=== PATIENT | female | born 1995 | race Caucasian/White ===

== ENCOUNTER 2017-01-13 12:41 | Emergency (ER) | payer BC ==
--- NOTE | 2017-01-13 13:22 | ERNOTE ---
ER Female HPI Date of Service: 01/13/17 Stated Complaint: UTI Presenting Symptoms: dysuria Time Seen by Provider: 01/13/17 13:04 Source: patient Exam Limitations: no limitations Immunizations: IMMUNIZATION HX Immunizations Up to Date Yes History of Influenza Vaccine No Hx Pneumococcal Vaccination No Allergies/Adverse Reactions: Allergies amoxicillin trihydrate [From Augmentin] Allergy (Mild, Verified 01/13/17 12:57) rash potassium clavula *RETIRED-06/30/13 [From Augmentin] Allergy (Mild, Verified 12:57) rash Home Medications: HOME MEDICATIONS Cephalexin Monohydrate [Keflex] 500 mg PO QID #40 cap 01/13/17 [Last Taken Unknown] Lurasidone HCl [Latuda] 20 mg PO DAILY 01/13/17 [Last Taken Unknown] - History of Present Illness Narrative: 21 year old female presents to ED ambulatory via POV. States she is 8 weeks A0. confirmed via urine on 12/18. LMP 11/16/16 with EDC 08/23/17. Has frequent UTI in past with last one approximately 2 months ago. States noticed urinary frequency beginning last Sunday and now has burning with urination beginning last night. Complains of fever, body aches and pain left mid back area. Denies vomiting Date (Duration): 01/06/17 Timing: Present: other - frequency x 1 week, now burning and pubic area pressure Quality: Present: mild, fullness, other - pressure Onset Location: Present: right flank Radiation: Present: suprapubic Activities at Onset: Present: none Prior Abdominal Problems: Present: similar symptoms, other - history of frequent UTI Sexual Cantu Addition History: Present: other - currently 8 weeks , confirmed Modifying Factors - (Worsens): Present: urinating Associated Symptoms: Present: fever/chills, nausea, dysuria, urinary frequency, low back pain. Absent: diaphoresis, vomiting, polyuria, loss of bladder control Review of Systems - Review of Systems Constitutional: Present: fever, chills. Absent: recent illness, diaphoresis, weakness, fatigue, weight loss, decreased activity level EYE: Present: no symptoms reported. Absent: eye pain, eye discharge, double vision, vision changes ENT: Present: no symptoms reported. Absent: ear pain, ear discharge, nose pain , nose congestion, nasal drainage, sore throat Respiratory: Present: no symptoms reported. Absent: shortness of breath, cough , orthopnea, wheezing Cardiology: Present: no symptoms reported. Absent: chest pain, palpitations Gastrointestinal/Abdominal: Present: nausea. Absent: vomiting, diarrhea Genitourinary: Present: frequency, dysuria. Absent: hematuria, decreased urinary output, discharge Musculoskeletal: Present: no symptoms reported. Absent: back pain, muscle pain Skin: Absent: rash Neurological: Present: no symptoms reported Endocrine: Present: no symptoms reported Hematologic/Lymphatic: Present: no symptoms reported - Patient's Past Medical History Patient History - Medical: Depression Patient History - Cardiac/Respiratory: No pertinent hx Patient History - Cancer: No Hx of Cancer Patient History - Surgical Procedures: T & A Patient History - Other: None LMP (Calendar): 04/26/16 - Social History Living Situations: home Psych History: Hx of Anxiety, Hx of Depression Does anyone smoke in the home?: No Smoking Status: Former smoker Have you smoked in the past 12 months: No Do you dip or chew tobacco: No Alcohol Use: none Drug Use: none - Immunizations Immunizations Up to Date: Yes Hx Pneumococcal Vaccination: No History of Influenza Vaccine: No Physical Exam - Physical Exam General Appearance: Present: wd/wn, alert, no apparent distress Eye Exam: Normal inspection: bilateral, PERRL: bilateral Ears, Nose, Throat: Present: normal ENT inspection, hearing grossly normal, normal pharynx Neck: Present: normal inspection, nontender, full range of motion. Absent: lymphadenopathy (R), lymphadenopathy (L) Respiratory: Present: no respiratory distress, normal breath sounds, no accessory muscle use, chest nontender, lungs clear Cardiovascular/Chest: Present: regular rate, rhythm, no murmur, normal peripheral pulses Peripheral Pulses: N=norm/S=strong/W=weak/B=bound/A=absent: Radial (R): Normal, Radial (L): Normal Gastrointestinal/Abdominal: Present: normal bowel sounds, nontender, nondistended, soft Rectal Exam: Present: deferred Back Exam: Present: normal inspection, normal range of motion, CVA tenderness (R ). Absent: CVA tenderness (L), decreased range of motion Extremity Exam: Present: normal inspection, non-tender, no edema, normal range of motion Neurological Exam: Present: alert, oriented, normal mood/affect, no motor/ sensory deficits Skin Exam: Present: normal color, warm/dry Lymphatic Exam: Present: no adenopathy ED Progress - Results and Orders Patient's Lab Results:: I have reviewed the patient's lab results. - Vital Signs Patient's Vital Signs:: I have reviewed the patient's vital signs. Vital Signs: Vital Signs 01/13/17 12:54 Temperature 36.8 C Pulse Rate 87 Respiratory 14 Rate Blood Pressure 150/89 O2 Sat by Pulse 100 Oximetry - Progress/Reassessment Chief Complaint: Urinary Tract Problems Progress:: Unchanged Departure Clinical Impression: Complicated urinary tract infection - Departure Disposition: Home Follow Up Needed Condition: Good Instructions: and Urinary Tract Infection Additional Instructions: Take antibiotic until completed. Drink increased amounts of water Referrals: Kaitlin Lawrence MD [Primary Care Provider] - Prescriptions: Cephalexin Monohydrate [Keflex] 500 mg PO QID #40 cap
--- OUTSIDE RECORDS SUMMARY | 2017-01-13 13:29 | XMS REPORT | Continuity of Care Document ---
:1995 Author Organization [facility] ([facility]) Address [address] [place] [address] Phone [phone] Care Team Providers Name Role Phone Kaitlin Lawrence Primary Care Provider [phone] Source Comments This disclosure is being made pursuant to the Care Everywhere program, applicable federal and state laws, and may not contain all informaitonavailable regarding this patient.[facility] ([facility]) Active Allergies and Adverse Reactions No Known Allergies Current Medications Not on file Active Problems Not on file Social History Tobacco Use Types Packs/Day Years Used Date Never Assessed Last Filed Vital Signs Vital Sign Reading Time Taken Blood Pressure 120/80 03/07/2013 1:53 PM CDT Pulse 81 03/07/2013 1:53 PM CDT Temperature 36 C (96.8 F) 03/07/2013 1:53 PM CDT Respiratory Rate 20 03/07/2013 1:53 PM CDT Height 1.561 m (5' 1.46") 03/07/2013 1:53 PM CDT Weight 74.7 kg (164 lb 10.9 oz) 03/07/2013 1:53 PM CDT Body Mass Index 30.66 03/07/2013 1:53 PM CDT Oxygen Saturation - - Plan of Care Health Maintenance Due Date Last Done Comments Hepatitis B Vaccine (1 of 3 - Primary Series) 1997 HPV Vaccine (1 of 3 - Female/Unknown 3 Dose Series) 2008 Tdap Vaccine 2008 Meningococcal Vaccine (1 of 1) 2013 Lipid Disorder Screening 2015 MMR Vaccine 2015 Td Vaccine 2015 Varicella Vaccine (1 of 2 - Adult - No Evidence of 2015 Immunity) Influenza Vaccine: Seasonal (#1) 06/26/2016 Results from Last 3 Months Not on file
--- OUTSIDE RECORDS SUMMARY | 2017-01-13 13:30 | XMS REPORT | Summary of Care ---
:1995 Author Organization [facility] Address [facility] [place] [address]- Care Team Providers Name Role Phone Kaitlin Lawrence Primary Care Physician Encounter Date(s): 12/18/16 - 12/19/[address] [address]- [facility] Discharge Diagnosis: Suicidal ideation Discharge Diagnosis: Major depression Discharge Disposition: Discharge/Transfer to [facility] as Inpt Attending Physician: Kai Subramanian DO Admitting Physician: Kai Subramanian DO Vital Signs Most recent to oldest 1 2 3 [Reference Range]: Temperature Temporal Artery 37.6 DegC [36-38 DegC] (12/19/16 7:32 AM) Temperature Temporal Artery 37.6 DegC [36.0-38.0 DegC] (12/18/16 7:10 PM) Heart Rate Monitored [60-100 99 bpm 115 bpm 119 bpm bpm] (12/19/16 7:32 AM) *HI* *HI* (12/19/16 12:33 AM) (12/18/16 7:10 PM) Respiratory Rate [12-20 16 br/min 16 br/min 20 br/min br/min] (12/19/16 7:32 AM) (12/19/16 12:33 AM) (12/18/16 7:10 PM) SpO2 96 % 97 % 100 % (12/19/16 7:32 AM) (12/19/16 12:33 AM) (12/18/16 7:10 PM) Blood Pressure [90-130/60-90 112/64mmHg 135/69mmHg 135/82mmHg mmHg] (12/19/16 7:32 AM) *HI* *HI* (12/19/16 12:33 AM) (12/18/16 7:10 PM) Weight Estimated 100 kg (12/18/16 7:10 PM) Weight Dosing 100.00 kg1 (12/18/16 7:13 PM) 1Result Comment: This result was because the dosing weight was either not entered or it is>30 days old. This result is based off: Weight Estimated December 18, 2016 19:10:00 ARTIST AND REPERTOIRE MANAGER by Jo Ann Machado RN Problem List Condition Effective Dates Status Health Status Informant Anxiety(Confirmed) Active Depression (emotion)(Confirmed) Active GERD (gastroesophageal reflux Active disease)(Confirmed) Headache(Confirmed) Active Hypertension(Confirmed) Active Hypothyroid(Confirmed) Active Allergies, Adverse Reactions, Alerts No Known Medication Allergies Medications ALPRAZolam Oral, 0 Refill(s), Start Date: 11/02/15 11:01:00 ARTIST AND REPERTOIRE MANAGER Start Date: 11/02/15 Stop Date: 12/19/16 Status: CompletedALPRAZolam 0.25 mg oral tablet 1 tab(s), Oral, BID, PRN for anxiety, 0 Refill(s), Start Date: 12/19/16 7:48:00 ARTIST AND REPERTOIRE MANAGER Start Date: 12/19/16 Status: OrderedARIPiprazole 15 mg oral tablet 1 tab(s), Oral, Daily, # 30 tab(s), 0 Refill(s), Start Date: 12/19/16 7:44:00 ARTIST AND REPERTOIRE MANAGER Start Date: 12/19/16 Status: OrderedARIPiprazole 2 mg oral tablet 1 tab(s), Oral, Daily, 0 Refill(s), Start Date: 11/02/15 11:02:00 ARTIST AND REPERTOIRE MANAGER Start Date: 11/02/15 Stop Date: 12/19/16 Status: Completedlevothyroxine Daily, 0 Refill(s), Start Date: 11/02/15 11:01:00 ARTIST AND REPERTOIRE MANAGER Start Date: 11/02/15 Stop Date: 12/19/16 Status: Completedlevothyroxine 50 mcg (0.05 mg) oral tablet 1 tab(s), Oral, Daily, # 30 tab(s), 0 Refill(s), Start Date: 12/19/16 7:48:00 ARTIST AND REPERTOIRE MANAGER Start Date: 12/19/16 Status: Orderedlithium Oral, 0 Refill(s), Start Date: 11/02/15 11:01:00 ARTIST AND REPERTOIRE MANAGER Start Date: 11/02/15 Stop Date: 12/16/15 Status: Completedlithium 300 mg oral tablet 1 tab(s), Oral, BID, # 270 tab(s), 0 Refill(s), Start Date: 12/19/16 7:48:00 ARTIST AND REPERTOIRE MANAGER Start Date: 12/19/16 Status: OrderedMicrogestin 12/15 1 tab(s), Oral, Daily, 0 Refill(s), Start Date: 11/02/15 11:01:00 ARTIST AND REPERTOIRE MANAGER Start Date: 11/02/15 Status: OrderedPriLOSEC 40 mg oral delayed release capsule 1 cap(s), Oral, Daily, # 30 cap(s), 0 Refill(s), Start Date: 12/20/15 9:45:00 ARTIST AND REPERTOIRE MANAGER, Pharmacy: [facility] [id number] Start Date: 12/20/15 Stop Date: 12/19/16 Status: Completedpropranolol 0 Refill(s), Start Date: 11/02/15 11:02:00 ARTIST AND REPERTOIRE MANAGER Start Date: 11/02/15 Stop Date: 12/19/16 Status: CompletedSuprep Bowel Prep Kit oral liquid See Instructions, 1 kit(s) Oral ONETIME, # 1 kit(s), 0 Refill(s), Start Date: 11:17:00 ARTIST AND REPERTOIRE MANAGER, Pharmacy: [facility] [id number] Start Date: 11/02/15 Stop Date: 12/20/15 Status: Completedtopiramate 2 tab(s), Oral, Daily, 0 Refill(s), Start Date: 11/02/15 11:02:00 ARTIST AND REPERTOIRE MANAGER Start Date: 11/02/15 Stop Date: 12/19/16 Status: Completedtopiramate 100 mg oral tablet 2 tab(s), Oral, Daily, 0 Refill(s), Start Date: 12/19/16 7:46:00 ARTIST AND REPERTOIRE MANAGER Start Date: 12/19/16 Status: Orderedtopiramate 25 mg oral tablet 1 tab(s), Oral, Daily, # 180 tab(s), 0 Refill(s), Start Date: 12/19/16 7:47:00 ARTIST AND REPERTOIRE MANAGER Start Date: 12/19/16 Status: Orderedvenlafaxine 75 mg oral tablet 1 tab(s), Oral, Daily, 0 Refill(s), Start Date: 12/19/16 7:45:00 ARTIST AND REPERTOIRE MANAGER Start Date: 12/19/16 Stop Date: 01/18/17 Status: Orderedvenlafaxine extended release 1 tab, Oral, Daily, 0 Refill(s), Start Date: 11/02/15 11:01:00 ARTIST AND REPERTOIRE MANAGER Start Date: 11/02/15 Stop Date: 12/19/16 Status: Completed Results Patient Viewable Results Most recent to oldest [Reference 1 2 Range]: WBC [4.8-10.8 thou/mm3] 6.7 thou/mm3 (12/18/16 7:58 PM) RBC [4.20-5.40 Mil/mm3] 4.91 Mil/mm3 (12/18/16 7:58 PM) Hgb [12.0-16.0 g/dL] 13.7 g/dL (12/18/16 7:58 PM) Hct [37.0-47.0 %] 40.1 % (12/18/16 7:58 PM) MCV [80.0-94.0 fL] 81.7 fL (12/18/16 7:58 PM) MCH [25.0-38.0 pg/cell] 27.9 pg/cell (12/18/16 7:58 PM) MCHC [31.0-37.0 g/dL] 34.2 g/dL (12/18/16 7:58 PM) RDW [1.0-48.0 fL] 39.9 fL (12/18/16 7:58 PM) Platelet [130-400 thou/mm3] 265 thou/mm3 (12/18/16 7:58 PM) Neutrophils % Auto [50.0-75.0 %] 62.8 % (12/18/16 7:58 PM) Immature Granulocyte Auto [0.1-2.0 0.3 % %] (12/18/16 7:58 PM) Lymphocytes % Auto [15.0-41.0 %] 31.6 % (12/18/16 7:58 PM) Monocytes % Auto [2.0-10.0 %] 4.8 % (12/18/16 7:58 PM) Eosinophils % Auto [0.0-6.0 %] 0.4 % (12/18/16 7:58 PM) Basophil % Auto [0.0-1.0 %] 0.1 % (12/18/16 7:58 PM) Neutrophils Absolute [1.5-5.9 4.2 thou/mm3 thou/mm3] (12/18/16 7:58 PM) Immature Gran Absolute [0.01-0.03 0.02 thou/mm3 thou/mm3] (12/18/16 7:58 PM) Lymphocytes Absolute [1.5-4.0 2.1 thou/mm3 thou/mm3] (12/18/16 7:58 PM) Monocytes Absolute [0.0-0.9 0.3 thou/mm3 thou/mm3] (12/18/16 7:58 PM) Eosinophil Absolute [0.0-0.7 0.0 thou/mm3 thou/mm3] (12/18/16 7:58 PM) Basophil Absolute [0.0-0.2 0.0 thou/mm3 thou/mm3] (12/18/16 7:58 PM) Sodium Lvl [135-144 mEq/L] 138 mEq/L (12/18/16 7:58 PM) Potassium Lvl [3.3-4.8 mEq/L] 3.9 mEq/L (12/18/16 7:58 PM) Chloride Lvl [98-107 mEq/L] 100 mEq/L (12/18/16 7:58 PM) Bicarbonate Lvl [22-30 mmol/L] 22 mmol/L (12/18/16 7:58 PM) Anion Gap [10.0-20.0] 19.9 (12/18/16 7:58 PM) Glucose Lvl [70-108 mg/dL] 99 mg/dL (12/18/16 7:58 PM) BUN [7-21 mg/dL] 7 mg/dL (12/18/16 7:58 PM) Creatinine Lvl [0.50-1.20 mg/dL] 0.52 mg/dL (12/18/16 7:58 PM) BUN/Creat Ratio 13.5 *NA* (12/18/16 7:58 PM) eGFR AA [>=60] >60 (12/18/16 7:58 PM) eGFR SARAY [>=60] >60 (12/18/16 7:58 PM) Calcium Lvl [8.6-10.2 mg/dL] 9.1 mg/dL (12/18/16 7:58 PM) Total Protein [6.4-8.3 g/dL] 7.4 g/dL (12/18/16 7:58 PM) Albumin Lvl [3.5-5.2 g/dL] 4.5 g/dL (12/18/16 7:58 PM) Globulin 2.9 *NA* (12/18/16 7:58 PM) A/G Ratio [0.9-1.8] 1.6 (12/18/16 7:58 PM) Bilirubin Total [0.1-1.0 mg/dL] 0.4 mg/dL (12/18/16 7:58 PM) Alkaline Phosphatase [39-129 72 unit/L unit/L] (12/18/16 7:58 PM) AST [0-39 unit/L] 17 unit/L (12/18/16 7:58 PM) ALT [0-40 unit/L] 16 unit/L (12/18/16 7:58 PM) TSH [0.50-3.00 mIU/L] 1.17 mIU/L (12/18/16 7:58 PM) Estimated Creatinine Clearance 187.27 mL/min 143.20 mL/min (12/18/16 8:22 PM) (12/18/16 7:13 PM) Ethanol Lvl [0-9 mg/dL] <10 mg/dL *LOW* (12/18/16 7:58 PM) Acetaminophen Lvl [10-20 mcg/mL] <5 mcg/mL *LOW* (12/18/16 7:58 PM) Salicylate Lvl [0.0-25.0 mg/dL] <0.3 mg/dL *LOW* (12/18/16 7:58 PM) Urine Amphetamine Scrn Negative (12/18/16 8:45 PM) Urine Barbiturate Scrn Negative (12/18/16 8:45 PM) Urine Benzodiazepine Scrn Negative (12/18/16 8:45 PM) Urine Cannabinoid Met Scrn Negative (12/18/16 8:45 PM) Urine Cocaine Met Scrn Negative (12/18/16 8:45 PM) Urine Methadone Scrn Negative (12/18/16 8:45 PM) Urine Opiate Scrn Negative (12/18/16 8:45 PM) Urine Phencyclidine Scrn Negative (12/18/16 8:45 PM) Urine Propoxyphene Scrn Negative (12/18/16 8:45 PM) UA Color Straw *NA* (12/18/16 8:45 PM) Urine Clarity Clear *NA* (12/18/16 8:45 PM) Specific [place] [1.000-1.060] 1.009 (12/18/16 8:45 PM) Urine pH [5-8] 6 (12/18/16 8:45 PM) Ketones 2+ *ABN* (12/18/16 8:45 PM) Bilirubin [Negative] Negative (12/18/16 8:45 PM) Urine Protein [Negative] Negative (12/18/16 8:45 PM) Glucose [Negative] Negative (12/18/16 8:45 PM) Urine HGB [Negative] Negative (12/18/16 8:45 PM) Urobilinogen <2.0 *NA* (12/18/16 8:45 PM) Nitrite [Negative] Negative (12/18/16 8:45 PM) Leuk Esterase [Negative] 1+ *ABN* (12/18/16 8:45 PM) UA Ascorbic Acid [Negative] Negative (12/18/16 8:45 PM) Urine WBC [0-5] 6-10 *ABN* (12/18/16 8:45 PM) Urine RBC [0-2] 0-2 (12/18/16 8:45 PM) Squamous Epi [0-5] 0-5 (12/18/16 8:45 PM) Mucus Trace (12/18/16 8:45 PM) HGC, SERUM QUAL [Negative] Positive *ABN* (12/18/16 7:58 PM) Serum HCG, Interp. If test result does not correlate with clinical presentation, then either immediate serum quantitative HCG test or repeat qualitative test in forty-eight hours recommended. The test is intended as an aid in diagnosing early . *Unknown* (12/18/16 7:58 PM) Microbiology Reports TEST:Urine Culture STATUS:Order in Progress BODY SITE: SOURCE:Urine COLLECTED DATE/TIME:12/18/16 7:36 PMPRELIMINARY REPORTNo growth less than 24 hrs. Immunizations No data available for this section Procedures Procedure Date Related Diagnosis Body Site Breath Test Bacteria Lactulose1 01/04/16 Colonoscopy2 12/20/15 Esophagogastroduodenoscopy3 12/20/15 Tonsillectomy and adenoidectomy 1999 1auto-populated from documented surgical [id number] from documented surgical [id number] from documented surgical case Social History No data available for this section Assessment and Plan No data available for this section
[2017-01-13 13:36] LABS: Hematocrit 36.5 % (37.0-47.0); Hemoglobin 12.3 gm/dL (12.5-16.0); Mean Cell Volume 81.8 fl (78-100); Mean Corpuscular Hemoglobin 27.6 pg (27-31); Mean Corpuscular Hgb Conc 33.7 g/dl (32-36); Neutrophil # 5.1 K/mm3 (1.3-6.0); Neutrophil % 63.3 % (42-75.0); Platelet Count 252 K/mm3 (150-450); Red Blood Count 4.46 M/mm3 (4.2-5.4); Red Cell Distribution Width 13.3 % (11.5-14.0); White Blood Count 8.1 K/mm3 (4.0-10.5)
[2017-01-13 13:39] LABS: Urine Appearance Cloudy; Urine Bilirubin Negative (NEGATIVE); Urine Blood Negative /ul (NEGATIVE); Urine Color Yellow; Urine Ketone Negative (NEGATIVE); Urine Protein Negative (NEGATIVE); Urine Specific Gravity 1.025 SP.GR. (1.005-1.010); Urine pH 6.5 pH (5.0-7.0)
[2017-01-13 13:40] LABS: Urine Bacteria 1+; Urine Nitrite Negative (NEGATIVE); Urine RBC None Seen /hpf (0-5); Urine Urobilinogen Normal (NORMAL)
[2017-01-13 13:45] LABS: Anion Gap 16.1 mmol/L (6.8-13.8); BUN/Creatinine Ratio 13.8 (9.0-21.6); CRP 2.3 mg/dL (0.0-0.9); Carbon Dioxide 23.9 mmol/L (24-32.6); Estimated Creat Clear 134.7
[2017-01-13 14:41] LABS: Urine Appearance Clear; Urine Bilirubin Negative (NEGATIVE); Urine Blood Negative /ul (NEGATIVE); Urine Color Yellow; Urine Ketone Negative (NEGATIVE); Urine Specific Gravity 1.005 SP.GR. (1.005-1.010)
[2017-01-13 14:42] LABS: Urine Bacteria 1+; Urine Nitrite Negative (NEGATIVE); Urine Protein Negative (NEGATIVE); Urine RBC None Seen /hpf (0-5); Urine Urobilinogen Normal (NORMAL); Urine WBC 0-5 /hpf (0-5)
[2017-01-13 15:23] VITALS: BP 122/71
== END 2017-01-13 15:26 | disposition home or self-care (01) ==
LOC: ER 12:41
DX: O23.41 Unspecified infection of urinary tract in pregnancy, first trimester (principal); Z3A.08 8 weeks gestation of pregnancy; Z87.891 Personal history of nicotine dependence

== ENCOUNTER 2017-05-16 16:06 | Emergency (ER) | payer BC ==
[2017-05-16 16:56] LABS: Hematocrit 35.3 % (37.0-47.0); Hemoglobin 11.6 gm/dL (12.5-16.0); Mean Cell Volume 88.3 fl (78-100); Mean Corpuscular Hgb Conc 32.9 g/dl (32-36); Mean Platelet Volume 9.8 fl (6.0-9.5); Neutrophil % 66.8 % (42-75.0); Platelet Count 212 K/mm3 (150-450); Red Cell Distribution Width 14.1 % (11.5-14.0); White Blood Count 8.9 K/mm3 (4.0-10.5)
[2017-05-16 17:02] LABS: Urine Bilirubin Negative (NEGATIVE); Urine Blood Negative /ul (NEGATIVE); Urine Ketone 5 mg/dL (NEGATIVE); Urine Nitrite Negative (NEGATIVE); Urine Protein 15 mg/dL (NEGATIVE); Urine Specific Gravity 1.025 SP.GR. (1.005-1.010); Urine Urobilinogen Normal (NORMAL)
[2017-05-16 17:20] LABS: Anion Gap 13.4 mmol/L (6.8-13.8); BUN/Creatinine Ratio 13.5 (9.0-21.6); Bilirubin, Total 0.2 mg/dL (0.0-1.1); Ca. Corrected For Albumin 9.6 mg/dL (8.4-10.2); Calcium * 9.1 mg/dL (7.9-10.9); Carbon Dioxide 23.3 mmol/L (24-32.6); Potassium 3.7 mmol/L (3.4-4.6); Total Protein 6.9 gm/dL (6.2-8.2)
[2017-05-16 17:21] LABS: Urine Appearance Slightly Cloudy; Urine Bacteria 2+; Urine Color Yellow; Urine RBC 0-5 /hpf (0-5)
[2017-05-16] MEDS ORDERED: ONDANSETRON HCL/PF 2 MG/ML VIAL IV ONE (17:44)
[2017-05-16] MEDS ORDERED: NORMAL SALINE 1,000 ML IV ONE (17:44)
--- NOTE | 2017-05-16 17:57 | ERNOTE ---
Abdominal HPI - Narrative Date of Service: 05/16/17 - General Chief Complaint: Abdominal Pain Time Seen by Provider: 05/16/17 17:24 Source: patient Exam Limitations: no limitations - Immun/Allergies/Home Medications Immunizatons: IMMUNIZATION HX Immunizations Up to Date Yes History of Influenza Vaccine No Hx Pneumococcal Vaccination No Allergies/Adverse Reactions: Allergies amoxicillin trihydrate [From Augmentin] Allergy (Mild, Verified 05/16/17 16:41) rash potassium clavula *RETIRED-06/30/13 [From Augmentin] Allergy (Mild, Verified 16:41) rash Home Medications: HOME MEDICATIONS ARIPiprazole [Abilify] 10 mg PO DAILY 05/16/17 [Last Taken Unknown] Vit #76/Iron,Carb/FA [Prenatabs Rx Tablet] 1 each PO DAILY 05/16/17 [ Last Taken Unknown] - History of Present Illness Narrative: Pt. comes in with c/o nausea and 2 episodes of vomiting for 12 hours. Pt. denies any SOB, CP, fever, recent illness but states that she is 25 weeks and experiencing cramping. Review of Systems - Review of Systems Constitutional: Present: no symptoms reported. Absent: recent illness, fever, chills, weakness, fatigue, malaise EYE: Present: no symptoms reported ENT: Present: no symptoms reported Respiratory: Present: no symptoms reported. Absent: shortness of breath, cough , wheezing Cardiology: Present: no symptoms reported. Absent: chest pain, palpitations, edema Gastrointestinal/Abdominal: Present: nausea, vomiting, abdominal pain - occasional cramping 4x per hous. Absent: diarrhea Genitourinary: Present: no symptoms reported Musculoskeletal: Present: no symptoms reported. Absent: back pain, joint pain Skin: Present: no symptoms reported. Absent: rash, change in hair/nails All Other Systems: All systems neg except as marked - Patient's Past Medical History Patient History - Medical: Depression Patient History - Cardiac/Respiratory: No pertinent hx Patient History - Cancer: No Hx of Cancer Patient History - Surgical Procedures: T & A Patient History - Other: None LMP (Calendar): 04/26/16 - Social History Living Situations: home Psych History: Hx of Anxiety, Hx of Depression Does anyone smoke in the home?: No Smoking Status: Never smoker Have you smoked in the past 12 months: No Alcohol Use: none Drug Use: none - Immunizations Immunizations Up to Date: Yes Hx Pneumococcal Vaccination: No History of Influenza Vaccine: No Physical Exam - Physical Exam General Appearance: Present: wd/wn, alert, no apparent distress Eye Exam: Normal inspection: bilateral, PERRL: bilateral, EOMI: bilateral Ears, Nose, Throat: Present: normal ENT inspection, normal pharynx Neck: Present: normal inspection, nontender. Absent: lymphadenopathy (R), lymphadenopathy (L) Respiratory: Present: no respiratory distress, normal breath sounds, no accessory muscle use, chest nontender, lungs clear Cardiovascular/Chest: Present: regular rate, rhythm, no murmur, normal peripheral pulses Gastrointestinal/Abdominal: Present: normal bowel sounds, nontender, nondistended, soft, no organomegaly, other - gravid and obese Back Exam: Present: normal inspection, normal range of motion, no CVA tenderness , no vertebral tenderness Extremity Exam: Present: normal inspection, non-tender, normal range of motion, no edema Neurological Exam: Present: alert, oriented, normal mood/affect, no motor/ sensory deficits Skin Exam: Present: normal color, warm/dry. Absent: pallor, skin rash ED Progress - Date and Time Seen: Date and Time: 05/16/17 Pt. labs indicitive of mild dehydration, and hcg is apporopriate for 25 week . 05/16/17 19:55 Pt. NST without signs of contractions and fetus is active with good variability. Pt. tolerating foods and fluids at this time. - Results and Orders Patient's Lab Results:: I have reviewed the patient's lab results. - Vital Signs Patient's Vital Signs:: I have reviewed the patient's vital signs. Vital Signs: Vital Signs 05/16/17 16:39 Temperature 37.2 C Pulse Rate 118 H Respiratory 14 Rate Blood Pressure 123/74 O2 Sat by Pulse 97 Oximetry - Progress/Reassessment Chief Complaint: Abdominal Pain Progress:: Improved Departure - Departure Clinical Impression: Acute gastroenteritis Disposition: Home self-care Condition: Good Instructions: Viral Gastroenteritis, Adult, [id number] Additional Instructions: Please increase fluid intake and follow up with [facility] in 2-3 days. Referrals: Kaitlin Lawrence MD [Primary Care Provider] -
[2017-05-16] MEDS ORDERED: ONDANSETRON HCL/PF 2 MG/ML VIAL ONE (17:59)
[2017-05-16 20:06] VITALS: BP 128/82
== END 2017-05-16 20:30 | disposition home or self-care (01) ==
LOC: ER 16:06
DX: O26.892 Other specified pregnancy related conditions, second trimester (principal); E86.0 Dehydration; K52.9 Noninfective gastroenteritis and colitis, unspecified; Z3A.25 25 weeks gestation of pregnancy
CPT/HCPCS: 36415; 80053; 81001; 82150; 83690; 84702; 85025; 87086; 96361; 96374; 99283; J2405

== ENCOUNTER 2017-08-15 17:19 | Inpatient (IN) | payer BC ==
[2017-08-15] MEDS ORDERED: OXYTOCIN/DEXTROSE 5%-WATER 30 UNITS/500 ML BAG IV ONE ×2 (17:59→19:55)
[2017-08-15] MEDS ORDERED: RINGER'S SOLUTION,LACTATED 1,000 ML IV PRN (17:59)
[2017-08-15] MEDS ORDERED: BUTORPHANOL TARTRATE 2 MG/ML VIAL IV PRN (17:59)
[2017-08-15] MEDS ORDERED: ONDANSETRON HCL/PF 2 MG/ML VIAL IV PRN ×2 (17:59→18:00)
[2017-08-15] MEDS ORDERED: LIDOCAINE HCL 50 ML VIAL PERI PRN (17:59)
[2017-08-15] MEDS ORDERED: RINGER'S SOLUTION,LACTATED 1,000 ML IV ONE (17:59)
[2017-08-15] MEDS ORDERED: DEXTROSE 5%-LACTATED RINGERS 1,000 ML IV PRN (17:59)
[2017-08-15] MEDS ORDERED: BUPIVACAINE HCL/0.9 % NACL/PF 250 ML EP PRN (18:00)
[2017-08-15] MEDS ORDERED: NALOXONE HCL 1 MG/1 ML SYRG IV PRN (18:00)
--- NOTE | 2017-08-15 18:09 | OR ---
Anesthesia Pre Procedure Eval Date of Service: 08/15/17 Pre Procedure Evaluation: Last Vital Signs Temp 37.0 C 05/16/17 19:55 Pulse Resp BP 128/82 05/16/17 19:55 Pulse Ox Anesthesia Pre Procedure Evaluation Heart Rate: 110 Blood Pressure: 127/82 Temperature: 36.3C Respiratory Rate: 18 SaO2: 96 DATE: 08/15/2017 TIME: 1805 INDICATIONS: Active labor, labor pain PAST MEDICAL HISTORY: Primipara patient in active labor requesting labor analgesia History of GERD: No History of smoking: No History of sleep apnea: Known EXAM: Heart regular; lungs clear ASSESSMENT OF MEDICAL STATUS: Appropriate candidate for labor analgesia PLANNED PROCEDURE: Combination spinal epidural for labor analgesia Home Medications: HOME MEDICATIONS Aripiprazole [Abilify] 15 mg PO DAILY 08/08/17 [Last Taken 08/15/17 08:00] Vits96/Iron Fum/Folic [ S] 1 tab PO DAILY 08/08/17 [Last Taken 08/15/17 08:00]
[2017-08-15] MEDS ORDERED: fentaNYL CITRATE/PF 50 MCG/ML AMPUL ONE (18:19)
--- NOTE | 2017-08-15 18:36 | OR ---
Anesthesia Procedure Note - Anesthesia Procedure Note Date of Service: 08/15/17 Narrative: Vital Signs - Last Taken Temp 37.0 C 05/16/17 19:55 Pulse Resp BP 128/82 05/16/17 19:55 Pulse Ox 08/15/17 18:32 ANESTHESIA PROCEDURE NOTE Date of Procedure: 08/15/2017 Time of procedure: 1805. Performed by: LEX Steward CRNA, MSN Bookkeeping Manager: Rosi Centeno RN. Preprocedure diagnosis: Active labor, labor pain. Post procedure diagnosis: Same. Procedure:Epidural for labor analgesia L3 4. Indications: Labor pain. Findings: See below. Details of the procedure: The patient was placed on the side of the bed in sitting positionand prepped with DuraPrep then draped in a sterile fashion. Lidocaine 1% was infiltrated to the skin and subcutaneous tissues at the level of the L3 4 interspace. An 18-gauge Touhy needle was used to approach the epidural space with loss of resistance technique. Once loss of resistance was achieved a 24-gauge Pencan needle was passed through the epidural needle and CSF was contacted. After CSF returned there was a brief right paresthesia, after which the paresthesia past, 20 mcg of fentanyl was injected in the spinal needle was removed the epidural catheter was then threaded approximately 4 cm in the epidural needle was removed. The catheter was taped in place and after careful aspiration 3 mL of 1.5% lidocaine with 1-200,000 epinephrine was injected without change in maternal heart rate or sensorium. . EBL: Minimal. Fluids: N/A. Specimen: N/A. Post procedure condition: The patient tolerated the procedure well with good relief. No complications were noted. Thank you for this consultation. Sujit Banuelos CRNA, LEX, MSN
[2017-08-15] MEDS ORDERED: fentaNYL CITRATE/PF 50 MCG/ML AMPUL IT ONE (18:45)
[2017-08-16] MEDS ORDERED: HYDROCORTISONE 30 APPL TUBE TP PRN (01:27)
[2017-08-16] MEDS ORDERED: BENZOCAINE/MENTHOL 81 SPRAY CAN TP PRN (01:27)
[2017-08-16] MEDS ORDERED: OXYTOCIN/DEXTROSE 5%-WATER 30 UNITS/500 ML BAG IV ONE (01:27)
[2017-08-16] MEDS ORDERED: SENNOSIDES 8.6 MG TABLET PO PRN (01:27)
[2017-08-16] MEDS ORDERED: GLYCERIN/WITCH HAZEL LEAF 40 APPL BOX TP PRN (01:27)
[2017-08-16] MEDS ORDERED: oxyCODONE HCL/ACETAMINOPHEN 1 TAB TABLET PO PRN (01:27)
[2017-08-16] MEDS ORDERED: BISACODYL 10 MG SUPP.RECT RC PRN (01:27)
--- NOTE | 2017-08-16 01:29 | OR ---
Operative Report - Dictated Report Narrative: Spontaneous vaginal delivery of viable female at 0105 on 08/16/2017 with Apgars 9 and 9, weighing 3119 g in RICHIE position. Nuchal cord 1-tight. Cord clamping delayed approximately 1 minute Placenta delivered complete, intact, with three vessel cord Estimated blood loss: less than 50 ml Lacerations: None
[2017-08-16] MEDS: oxyCODONE HCL/ACETAMINOPHEN 1 TAB TABLET PO PRN (07:21)
[2017-08-16] MEDS: IBUPROFEN 800 MG TABLET PO PRN ×2 (07:21→16:00)
[2017-08-16] MEDS: ARIPiprazole 10 MG TABLET PO SCH (09:09)
[2017-08-16] MEDS: DOCUSATE SODIUM 100 MG CAPSULE PO SCH ×2 (09:09→21:11)
[2017-08-16] MEDS: PRENATAL VITS96/IRON FUM/FOLIC 1 TAB TABLET PO SCH (09:09)
[2017-08-17] MEDS: ARIPiprazole 10 MG TABLET PO SCH (08:10)
[2017-08-17] MEDS: PRENATAL VITS96/IRON FUM/FOLIC 1 TAB TABLET PO SCH (08:10)
[2017-08-17] MEDS: IBUPROFEN 800 MG TABLET PO PRN (08:10)
[2017-08-17] MEDS: DOCUSATE SODIUM 100 MG CAPSULE PO SCH ×2 (08:10→21:23)
--- NOTE | 2017-08-17 08:49 | PN ---
Progess Note - Interim Narrative: 08/17/17 08:46 progress note Subjective: The patient is doing well. She is ambulating, voiding, tolerating by mouth. She has minimal pain and moderate lochia. Objective: General: No acute distress Abdomen: Soft, nontender, fundus is firm just below the umbilicus Extremities: minimal edema, nontender to palpation Assessment and plan: day 1 Feeding: bottle Pain: Controlled with by mouth medication control: OCPs Routine care.
[2017-08-17] MEDS: oxyCODONE HCL/ACETAMINOPHEN 1 TAB TABLET PO PRN (21:27)
[2017-08-18] MEDS: oxyCODONE HCL/ACETAMINOPHEN 1 TAB TABLET PO PRN (01:51)
[2017-08-18 08:59] VITALS: BP 119/73
[2017-08-18] MEDS: DOCUSATE SODIUM 100 MG CAPSULE PO SCH (10:07)
[2017-08-18] MEDS: ARIPiprazole 10 MG TABLET PO SCH (10:07)
[2017-08-18] MEDS: PRENATAL VITS96/IRON FUM/FOLIC 1 TAB TABLET PO SCH (10:07)
--- NOTE | 2017-08-18 10:29 | PN ---
Subjective - Date and Time Seen Date: 08/18/17 Time: 10:27 Objective - Vitals Vitals: Last Vital Signs Temp 36.9 C 08/18/17 08:49 Pulse 105 H 08/18/17 08:49 Resp 16 08/18/17 08:49 BP 119/73 08/18/17 08:49 Pulse Ox 97 08/18/17 08:49 Patient denies complaints. Lochia wnl Abdomen - soft, nontender Uterus - firm, at umbilicus - 2 No calf tenderness Impression: day #2 - s/p spontaneous vaginal delivery. Depression- stable. Morbid obesity-stable. Hypothyroidism-stable Plan: Routine discharge instructions Cauti Physician Documentation - Urinary Catheter Management Urethral ([place]) Date of Insertion: 08/15/17 Time of Insertion: 19:10 Date of Removal: 08/16/17 Time of Removal: 00:30
[2017-08-18] MEDS ORDERED: DOCUSATE SODIUM 100 MG CAPSULE PO SCH (21:00)
== END 2017-08-18 12:45 | disposition home or self-care (01) | DRG 775 ==
LOC: OB 17:20 → MS 08-17 17:03
PROVIDERS: ADMIT Obstetrics & Gynecology; ATTEND Obstetrics & Gynecology
PROC: 10E0XZZ Delivery of Products of Conception, External Approach (ICD-10-PCS; principal; 2017-08-16)
PROC: 4A1HXCZ Monitoring of Products of Conception, Cardiac Rate, External Approach (ICD-10-PCS; 2017-08-16)
PROC: 00HU33Z Insertion of Infusion Device into Spinal Canal, Percutaneous Approach (ICD-10-PCS; 2017-08-16)
DX: O13.4 Gestational [pregnancy-induced] hypertension without significant proteinuria, complicating childbirth (principal); O99.214 Obesity complicating childbirth; O99.284 Endocrine, nutritional and metabolic diseases complicating childbirth; E03.9 Hypothyroidism, unspecified; O69.1XX0 Labor and delivery complicated by cord around neck, with compression, not applicable or unspecified; O99.344 Other mental disorders complicating childbirth; F32.9 Major depressive disorder, single episode, unspecified; Z3A.39 39 weeks gestation of pregnancy; Z37.0 Single live birth